=== PATIENT | male | born 1950 | race Hispanic/Latino ===

== ENCOUNTER 2018-08-12 08:27 | Observation (INO) | payer BC, MEDICARE ==
[2018-08-01 13:21] LABS: BASOPHILS # (AUTO) 0.1 (0.0-0.1); EOSINOPHILS # (AUTO) 0.1 (0.0-0.4); EOSINOPHILS % 1.4 % (0.0-6.0); HEMATOCRIT 51.6 % (38.2-49.6); HEMOGLOBIN 16.6 g/dL (14.0-18.0); LYMPHOCYTES # (AUTO) 2.1 (1.0-3.2); LYMPHOCYTES % 34.1 % (18.0-39.1); MEAN CORPUSCULAR HEMOGLOBIN 29.2 pg (28-32); MEAN CORPUSCULAR HGB CONC 32.2 g/dL (31-35); MEAN CORPUSCULAR VOLUME 90.8 fL (81-99); MONOCYTES # (AUTO) 0.5 (0.2-0.8); MONOCYTES % 7.5 % (4.4-11.3); NEUTROPHILS # (AUTO) 3.5 (2.1-6.9); NEUTROPHILS % 55.8 % (38.7-80.0); PLATELET COUNT 195 x10e3/uL (140-360); RED BLOOD COUNT 5.68 x10e6/uL (4.3-5.7); RED CELL DISTRIBUTION WIDTH 14.6 % (11.7-14.4)
[2018-08-01 13:29] LABS: INR 0.92; PROTHROMBIN TIME 12.9 seconds (11.9-14.5)
[2018-08-01 13:30] LABS: PARTIAL THROMBOPLASTIN TIME 40.9 seconds (23.8-35.5)
--- NOTE | 2018-08-01 13:32 | Diagnostic Imaging Report ---
EXAMINATION: PA and lateral views of the chest. COMPARISON: None CLINICAL HISTORY: Preoperative study for urological surgery DISCUSSION: Lines/tubes: None. Lungs: The lungs are well inflated and clear. There is no evidence of pneumonia or pulmonary edema. Pleura: There is no pleural effusion or pneumothorax. Heart and mediastinum: The cardiomediastinal silhouette is normal. Bones and soft tissues: No acute bony abnormalities. Degenerative changes in the thoracic spine IMPRESSION: No acute cardiopulmonary abnormalities. Signed by: Dr. Tadeo Busby M.D. on 08/01/2018 1:29 PM
[2018-08-01 13:36] LABS: ALANINE AMINOTRANSFERASE 43 IU/L (0-55); ALBUMIN 3.7 g/dL (3.5-5.0); ALKALINE PHOSPHATASE 45 IU/L (40-150); ANION GAP 10.2 mmol/L (8-16); BLOOD UREA NITROGEN 12 mg/dL (7-26); BUN/CREATININE RATIO 17 (6-25); CALCIUM 8.6 mg/dL (8.4-10.2); CARBON DIOXIDE 24 mmol/L (22-29); CHLORIDE 105 mmol/L (98-107); CREATININE, SERUM 0.69 mg/dL (0.72-1.25); EST GLOMERULAR FILTRATION RATE > 60 ML/MIN (60-); GLUCOSE 82 mg/dL (74-118); POTASSIUM 4.2 mmol/L (3.5-5.1); SODIUM 135 mmol/L (136-145)
[~2018-08-12] VITALS: Ht 170.2 cm; Wt 73.5 kg
[~2018-08-12 08:27] MED LIST: GLIMEPIRIDE2 MG PO; LISINOPRIL10 MG PO; METFORMIN HCL500 MG PO; SIMVASTATIN40 MG PO; TOPROL XL25 MG PO
--- OUTSIDE RECORDS SUMMARY | 2018-08-12 08:30 | XMS REPORT | Clinical Summary ---
Author Author [facility] Organization [facility] Address Unknown Phone Unavailable Care Team Providers Care Cdl Program Coordinator Name Role Phone Venus Moore MD PCP Unavailable Allergies Comments Active Allergy Reactions Severity Noted Date No Known Drug Allergies 07/31/2015 Medications End Date Status Medication Sig Dispensed Refills Start Date Active lancets (onetouch Use to test 50 each 5 ultrasoft) misc blood glucose 7 once daily Active aspirin (ECOTRIN) 81 MG Take 81 mg by 0 enteric coated tablet mouth daily. Active simvastatin (ZOCOR) 20 MG TAKE 1 TABLET 90 tablet 1 tabletIndications: BY MOUTH AT 8 Hypercholesteremia BEDTIME Active metoprolol succinate XL Take 1 tablet 90 tablet 1 (TOPROL-XL) 50 mg 24 hr (50 mg total) 8 tablet by mouth daily. Active metFORMIN (GLUCOPHAGE) Take 1 tablet 180 tablet 1 500 mg tablet (500 mg 8 total) by mouth 2 (two) times a day. Active VOLTAREN 1 % Apply 100 g 5 gelIndications: Chronic topically 4 8 pain of left knee (four) times a day. Active meloxicam (MOBIC) 15 mg TAKE 1 TABLET 30 tablet 0 tablet BY MOUTH 8 EVERY DAY Active blood sugar diagnostic Use to test 100 strip 1 strips (ONETOUCH ULTRA blood glucose 8 TEST) strip test strips once daily Active lisinopril TAKE 1 TABLET 90 tablet 1 (PRINIVIL,ZESTRIL) 10 mg BY MOUTH 8 tabletIndications: Benign EVERY DAY hypertension Active glimepiride (AMARYL) 4 MG TAKE 1 TABLET 90 tablet 1 tablet BY MOUTH 8 DAILY Active IBU 800 mg tablet Take 800 mg 0 by mouth 8 every 8 (eight) hours as needed. for pain 01/04/2018 Discontinued blood sugar diagnostic Use to test 50 strip 5 strips (The Naked SongUCH ULTRA blood glucose 7 TEST) strip test strips once daily 09/09/2017 Discontinued metFORMIN (GLUCOPHAGE) TAKE 1 TABLET 180 tablet 1 500 mg tablet BY MOUTH 7 TWICE A DAY 09/07/2017 Discontinued simvastatin (ZOCOR) 20 MG Take 1 tablet 90 tablet 1 tabletIndications: (20 mg total) 7 Hypercholesteremia by mouth nightly. 09/09/2017 Discontinued glimepiride (AMARYL) 4 MG TAKE 1 TABLET 90 tablet 1 tablet BY MOUTH 7 EVERY DAY 09/09/2017 Discontinued metoprolol succinate XL TAKE 1 TABLET 90 tablet 1 (TOPROL-XL) 50 mg 24 hr BY MOUTH 7 tablet EVERY DAY 02/26/2018 Discontinued lisinopril TAKE 1 TABLET 90 tablet 1 (PRINIVIL,ZESTRIL) 10 mg BY MOUTH 8 tabletIndications: Benign EVERY DAY hypertension 03/15/2018 Discontinued glimepiride (AMARYL) 4 MG Take 1 tablet 90 tablet 1 tablet (4 mg total) 8 by mouth daily. 12/06/2017 Discontinued meloxicam (MOBIC) 15 mg Take 1 tablet 30 tablet 0 tablet (15 mg total) 8 by mouth daily. 10/21/2017 sodium,potassium,mag Take 2 2 Bottle 0 sulfates 17.5-3.13-1.6 Bottles by 8 gram recon mouth once solnIndications: Colon for 1 dose. cancer screening Active Problems Problem Noted Date Arthritis of knee 07/31/2015 Benign hypertension 07/31/2015 Cellulitis of buttock 07/31/2015 Cellulitis of lower extremity 07/31/2015 Multiple-type hyperlipidemia 07/31/2015 Abnormal prostate specific antigen 07/31/2015 Uncontrolled type 2 diabetes mellitus 07/31/2015 Encounters Care Team Description Date Type Specialty Dakota Lang MA Elevated PSA; Gross hematuria; Urinary frequency 07/08/2018 Orders Only Family Medicine Venus Moore MD 06/17/2018 Telephone Family Medicine Venus Moore MD Elevated PSA (Primary Dx); Gross hematuria; Urinary frequency 06/13/2018 Orders Only Family Medicine Venus Moore MD Gross hematuria (Primary Dx); Uncontrolled type 2 diabetes mellitus with hyperglycemia (HCC); Benign hypertension; Mixed hyperlipidemia 06/10/2018 Office Visit Family Chemo Adam MD 03/15/2018 Refill Family Medicine Chemo Hess MD Benign hypertension 02/26/2018 Refill Family Medicine Adelaide Meyer MA 01/04/2018 Refill Family Medicine Brock Enriquez MD 12/06/2017 Refill Orthopedic Surgery Brock Enriquez MD 11/22/2017 Refill Orthopedic Surgery Sinan Ochoa MD 11/05/2017 Telephone Gastroenterology Chemo Hess MD Khan, Rashid Hasan, MD Colon cancer screening 10/21/2017 Office Visit Gastroenterology Chemo Hess MD Jonna, Venkata Karthik, MD Primary localized osteoarthrosis of left lower leg (Primary Dx); Acute pain of left knee 10/21/2017 Office Visit Orthopedic Surgery Chemo Hess MD Chronic pain of left knee 10/11/2017 Hospital Radiology Encounter Chemo Hess MD 10/11/2017 Telephone Family Medicine Chemo Hess MD Annual physical exam (Primary Dx); Type 2 diabetes mellitus with diabetic polyneuropathy, without long-term current use of insulin; Chronic pain of left knee; Prostate cancer screening; Colon cancer screening 10/07/2017 Office Visit Family Medicine Adelaide Meyer MA 09/09/2017 Refill Family Medicine Chemo Hess MD Hypercholesteremia 09/07/2017 Refill Family Medicine after 08/11/2017 Family History Relation Name Status Comments Father Mother Social History Date Tobacco Use Types Packs/Day Years Used Current Every Day Smoker Cigarettes 0.5 30 Smokeless Tobacco: Never Chew Used Alcohol Use Drinks/Week oz/Week Comments No Sex Assigned at Date Recorded Not on file Industry Job Start Date Occupation Not on file Not on file Not on file Travel End Travel History Travel Start No recent travel history available. Last Filed Vital Signs Time Taken Vital Sign Reading 06/10/2018 8:08 AM [facility] Blood Pressure 138/66 06/10/2018 8:08 AM [facility] Pulse 72 06/10/2018 8:08 AM [facility] Temperature 36.7 C (98.1 F) - Respiratory Rate - 06/10/2018 8:08 AM [facility] Oxygen Saturation 98% - Inhaled Oxygen - Concentration 06/10/2018 8:08 AM [facility] Weight 72.6 kg (160 lb) 06/10/2018 8:08 AM [facility] Height 170.2 cm (5' 7") 06/10/2018 8:08 AM [facility] Body Mass Index 25.06 Plan of Treatment Care Team Description Date Type Specialty Venus Moore MD [id number] [address] [id number] 09/07/2018 Office Visit Family Medicine Health Maintenance Due Date Last Done Comments DIABETIC RETINAL EYE EXAM 1951 DIABETIC FOOT EXAM 1961 COLON CANCER SCREENING 2001 SHINGLES VACCINES (#1) 2001 65+ PNEUMOCOCCAL VACCINE 2016 (1 of 2 - PCV13) PNEUMOCOCCAL 2016 POLYSACCHARIDE VACCINE AGE 65 AND OVER INFLUENZA VACCINE 12/08/2018 URINE MICROALBUMIN 06/10/2019 06/10/2018, 12/28/2016 Procedures Comments Procedure Name Priority Date/Time Associated Diagnosis POC URINALYSIS DIPSTICK Routine 06/10/2018 Gross hematuria 8:46 AM [facility] PSA, FREE Routine 06/10/2018 8:37 AM [facility] COMPREHENSIVE METABOLIC Routine 06/10/2018 Gross hematuria PANEL WITH ADJUSTED 8:37 AM [facility] Uncontrolled type 2 CALCIUM diabetes mellitus with hyperglycemia (HCC) HEMOGLOBIN A1C Routine 06/10/2018 Uncontrolled type 2 8:37 AM [facility] diabetes mellitus with hyperglycemia (HCC) Gross hematuria URINALYSIS, COMPLETE, Routine 06/10/2018 Gross hematuria WITH REFLEX TO CULTURE 8:37 AM [facility] PSA, TOTAL WITH REFLEX TO Routine 06/10/2018 Gross hematuria FREE 8:37 AM [facility] CBC WITH PLATELET AND Routine 06/10/2018 Gross hematuria DIFFERENTIAL 8:37 AM [facility] MICROALBUMIN / CREATININE Routine 06/10/2018 Gross hematuria URINE RATIO 8:37 AM [facility] URINE CULTURE Routine 06/10/2018 8:37 AM [facility] XR KNEE 3 VW LEFT Routine 10/11/2017 Chronic pain of left knee 1:31 PM CDT HEMOGLOBIN A1C Routine 10/07/2017 Type 2 diabetes mellitus 8:41 AM CDT with diabetic polyneuropathy, without long-term current use of insulin COMPREHENSIVE METABOLIC Routine 10/07/2017 Type 2 diabetes mellitus PANEL 8:41 AM CDT with diabetic polyneuropathy, without long-term current use of insulin PROSTATE SPECIFIC ANTIGEN Routine 10/07/2017 Prostate cancer screening 8:41 AM CDT after 08/11/2017 Results * POC urinalysis dipstick (06/10/2018 8:46 AM [facility]) Color urine, POC Yellow Clarity urine, POC Clear Glucose urine, POC Negative Negative Bilirubin urine, POC Negative Negative Ketones urine, POC Negative Negative Specific gravity urine, 1.025 1.005 - 1.030 POC Blood urine, POC Trace (A) Negative pH urine, POC 5.5 5.0, 5.5, 6.0, 6.5, 7.0, 7.5, 8.0, 8.5 Protein urine, POC 3+ (A) Negative Urobilinogen urine, POC <2.0 <2.0 Nitrite urine, POC Negative Negative Leukocyte esterase urine, Negative Negative POC Specimen Urine * PSA, free (06/10/2018 8:37 AM [facility]) PSA, free 1.7 ng/mL [facility] II PSA, free percent 19 (L) >25 % (calc) [facility] Comment[facility] PSA(ng/mL)Free II PSA(%) Estimated(x) Probability of Cancer(as%) 0-2.5 (*) Approx. 1 2.6-4.0(1) 0-27(2) 24(3) 4.1-10(4)0 -10 56 11-15 28 16-20 20 21-25 16 >or=26 8 >10(+) N/A >50 References:(1)Óscar et al.:Urology 60: 469-474 (2001) (2)Óscar et al.:J.Urol 168: 922-925 (2001) Fr ee PSA(%) Sensitivity(%)Specificity( %) < jq=8009 19 < ew=9566 9 (3)Catalona et al.:VICK 277: 1481-5414 (1996) (4)Catalona et al.:VICK 279: 1581-2698 (1997) (x)These estimates vary with age, ethnicity, family history and SHANELL results. (*)The diagnostic usefulness of % Free PSA has not been established in patients with total PSA below 2.6 ng/mL (+)In men with PSA above 10 ng/mL, prostate cancer risk is determined by total PSA alone. The Total PSA value from this assay system is standardized against the equimolar PSA standard. The test result will be approximately 20% higher when compared to the WHO-standardized Total PSA (Siemens assay). Comparison of serial PSA results should be interpreted with this fact in mind. PSA was performed using the [facility] Immunoassay method. Values obtained from different assay methods cannot be used interchangeably. PSA levels, regardless of value, should not be interpreted as absolute evidence of the presence or absence of disease. Narrative Performed At FASTING:YES [facility] FASTING: YES Resulting Agency Comment Performing Organization Information: Site ID: Name: [facility] Address: [address] [place] [phone] Director: Dr. Leif Arriaga Performing Organization Address City/State/Zipcode Phone Number [facility] [address] [address] II * Comprehensive Metabolic Panel with Adjusted Calcium (06/10/2018 8:37 AM [facility]) Glucose 117 (H) 65 - 99 mg/dL [employer] Comment: [place] Fasting reference interval For someone without known diabetes, a glucose value between 100 and 125 mg/dL is consistent with prediabetes and should be confirmed with a follow-up test. BUN, whole blood 12 7 - 25 mg/dL [facility] Creatinine 0.68 (L) 0.70 - 1.25 mg/dL [employer] Comment: [place] For patients >49 years of age, the reference limit for Creatinine is approximately 13% higher for people identified as -[place]. EGFR Non-Afr. [place] 99 > OR=60 mL/min/1.73m2 [employer] [place] EGFR 115 > OR=60 mL/min/1.73m2 [employer] [place] BUN/creatinine ratio 18 6 - 22 (calc) [facility] [place] Sodium 138 135 - 146 mmol/L [facility] [place] Potassium 4.4 3.5 - 5.3 mmol/L [facility] [place] Chloride 104 98 - 110 mmol/L [facility] [place] CO2 25 20 - 32 mmol/L [employer] [place] Calcium 9.2 8.6 - 10.3 mg/dL [facility] [place] Calcium (adjusted for 9.4 8.6 - 10.2 mg/dL (calc) [facility] albumin) [place] Protein 7.1 6.1 - 8.1 g/dL [employer] [place] Albumin, S 4.1 3.6 - 5.1 g/dL [employer] [place] Globulin, total 3.0 1.9 - 3.7 g/dL (calc) [employer] [place] Albumin/globulin ratio 1.4 1.0 - 2.5 (calc) [employer] [place] Total bilirubin 0.5 0.2 - 1.2 mg/dL [employer] [place] Alkaline phosphatase 55 40 - 115 U/L [employer] [place] AST 21 10 - 35 U/L [employer] [place] ALT 31 9 - 46 U/L [employer] [place] Specimen Blood Narrative Performed At FASTING:YES [facility] FASTING: YES Resulting Agency Comment Performing Organization Information: Site ID: [id number] Name: [facility] Address: [address] [place] [phone] Director: Kavya Alston Performing Organization Address City/State/Zipcode Phone Number [facility] [place] [phone] * URINALYSIS, COMPLETE, WITH REFLEX TO CULTURE (06/10/2018 8:37 AM [facility] RELAMPER) Color, UA YELLOW YELLOW [employer] [place] Appearance CLEAR CLEAR [employer] [place] Specific gravity, urine 1.018 1.001 - 1.035 [employer] [place] pH, urine 5.5 5.0 - 8.0 [employer] [place] Glucose, urine NEGATIVE NEGATIVE [facility] [place] Bilirubin, UA NEGATIVE NEGATIVE [employer] [place] Ketones, UA NEGATIVE NEGATIVE [employer] [place] Occult blood, urine NEGATIVE NEGATIVE [facility] [place] Protein, UA NEGATIVE NEGATIVE [facility] [place] Nitrite, UA NEGATIVE NEGATIVE [facility] [facility] [place] Leukocyte esterase, UA TRACE (A) NEGATIVE [facility] [place] WBC, UA 0-5 < OR=5 /HPF [facility] [place] RBC, UA NONE SEEN < OR=2 /HPF [facility] [place] Squamous epithelial NONE SEEN < OR=5 /HPF [facility] cells, UA [place] Bacteria, UA NONE SEEN NONE SEEN /HPF [facility] [place] Hyaline casts, UA NONE SEEN NONE SEEN /LPF [facility] [place] Reflex CULTURE INDICATED - RESULTS TO [facility] FOLLOW [place] Narrative Performed At FASTING:YES [facility] FASTING: YES Resulting Agency Comment Performing Organization Information: Site ID: [id number] Name: [facility] Address: [address] [place] [phone] Director: Kavya Alston Performing Organization Address City/State/[facility]code Phone Number [facility] [place] [address] [place] [address] * PSA, total with reflex to free (06/10/2018 8:37 AM [facility]AMPER) PSA 8.8 (H) < OR=4.0 ng/mL [facility] II Specimen Blood Narrative Performed At FASTING:YES [facility] FASTING: YES Resulting Agency Comment Performing Organization Information: Site ID: [id number] Name: [facility] Address: [address] [place] [phone] Director: Dr. Leif Arriaga Performing Organization Address City/[facility]/Zipcode Phone Number [facility] [place] [address] II * Microalbumin / creatinine urine ratio (06/10/2018 8:37 AM [facility] RELAMPER) Creatinine, urine, random 114 20 - 320 mg/dL [employer] [place] Microalbumin, urine 3.5 See Note: mg/dL [facility] Comment: [place] Reference Range: Reference Range Not established Microalbumin/creatinine 31 (H) <30 mcg/mg creat [facility] ratio Comment: [place] The ADA defines abnormalities in albumin excretion as follows: Category Result (mcg/mg creatinine) Normal <30 Microalbuminuria 30-299 Clinical albuminuria > JV=411 The ADA recommends that at least two of three specimens collected within a 3-6 month period be abnormal before considering a patient to be within a diagnostic category. Specimen Urine Narrative Performed At FASTING:YES [facility] FASTING: YES Resulting Agency Comment Performing Organization Information: Site ID: [id number] Name: [facility] Address: [address] [place] [phone] Director: Kavya Alston Performing Organization Address City/State/Zipcode Phone Number [facility] [employer] [place] [address] [place] [phone] * CBC with platelet and differential (06/10/2018 8:37 AM [facility]AMPER) WBC 6.6 3.8 - 10.8 Thousand/uL [employer] [place] RBC 5.81 (H) 4.20 - 5.80 Million/uL [employer] [place] HGB 17.1 13.2 - 17.1 g/dL [employer] [place] HCT 51.0 (H) 38.5 - 50.0 % [employer] [place] MCV 87.8 80.0 - 100.0 fL [employer] [place] MCH 29.4 27.0 - 33.0 pg [employer] [place] MCHC 33.5 32.0 - 36.0 g/dL [employer] [place] RDW 13.2 11.0 - 15.0 % [employer] [place] Platelet count 220 140 - 400 Thousand/uL [facility] [place] MPV 10.2 7.5 - 12.5 fL [employer] [place] Neutrophils, absolute 3,359 1,500 - 7,800 cells/uL [employer] [place] Lymphocytes, absolute 2,548 850 - 3,900 cells/uL [facility] [place] Monocytes, absolute 462 200 - 950 cells/uL [facility] [place] Eosinophils, absolute 132 15 - 500 cells/uL [facility] [place] Basophils, absolute 99 0 - 200 cells/uL [facility] [place] Neutrophils 50.9 % [employer] [place] Lymphocytes 38.6 % [employer] [place] Monocytes 7.0 % [employer] [place] Eosinophils 2.0 % [employer] [place] Basophils + RC 1.5 % [employer] [place] Specimen Blood Narrative Performed At FASTING:YES [facility] FASTING: YES Resulting Agency Comment Performing Organization Information: Site ID: [id number] Name: [facility] Address: [address] [place] [phone] Director: Kavya Alston Performing Organization Address City/[facility]/Zipcode Phone Number [place] [employer] [place] [address] [place] [phone] * Urine culture (06/10/2018 8:37 AM [facility] RELAMPER) Urine culture SEE NOTE (A) [employer] Comment: [place] CULTURE, URINE, ROUTINE MICRO NUMBER:[id number] TEST STATUS: FINAL SPECIMEN SOURCE: URINE SPECIMEN QUALITY:ADEQUATE RESULT: 10,000-50,000 CFU/mL of Enterococcus species COMMENT: Additional organism(s) less than 10,000 CFU/mL isolated. These organisms, commonly found on external and internal genitalia, are considered colonizers. No further testing performed. Enteroco ccus sp. -------- -------- INT MONIKA AMPICILLIN S <=2 CIPROFLOXACIN S <=0.5 LEVOFLOXACIN S 1 NITROFURANTOIN S <=16 TETRACYCLINE S <=1 VANCOMYCIN S 1 S=SusceptibleI=Intermediat eR=Resistant*=Not Tested NR=Not ReportedNN=See Therapy Comments Narrative Performed At FASTING:YES [facility] FASTING: YES Resulting Agency Comment Performing Organization Information: Site ID: [id number] Name: [facility] Address: [address] [place] [phone] Director: Kavya Alston Performing Organization Address [facility] Phone Number [place] [address] * Hemoglobin A1c (06/10/2018 8:37 AM [facility]TURE RELAMPER) Only the most recent of 2 results within the time period is included. Hemoglobin A1C 6.1 (H) <5.7 % of total Hgb [employer] Comment: [place] For someone without known diabetes, a hemoglobin A1c value between 5.7% and 6.4% is consistent with prediabetes and should be confirmed with a follow-up test. For someone with known diabetes, a value <7% indicates that their diabetes is well controlled. A1c targets should be individualized based on duration of diabetes, age, comorbid conditions, and other considerations. This assay result is consistent with an increased risk of diabetes. Currently, no consensus exists regarding use of hemoglobin A1c for diagnosis of diabetes for children. Specimen Blood Narrative Performed At FASTING:YES [facility] FASTING: YES Resulting Agency Comment Performing Organization Information: Site ID: [id number] Name: [facility] Address: [address] [place] [phone] Director: Kavya Alston Performing Organization Address [facility]/Zipcode Phone Number [facility] [place] [address] [place], [place] [phone] * XR Knee 3 Vw Left (10/11/2017 1:31 PM CDT) Narrative Performed At EXAMINATION:XR KNEE 3 VW LEFT RADIANT CLINICAL HISTORY:M25.562 Pain in left knee, G89.29 Other chronic pain, Chronic left knee pain COMPARISON:None. IMPRESSION: There is moderate nonweightbearing degenerative narrowing of the medial femoral tibial compartment. There are no erosions and no soft tissue calcifications. The patellar femoral distance is narrowed. There is a small suprapatellar joint effusion. Osteophytes are present on the posterior distal femoral joint margin and also the anterior tibial joint margin. No signs of acute trauma. [id number] Procedure Note Hm Interface, Radiology Results Incoming - 10/11/2017 3:07 PM CDT EXAMINATION: XR KNEE 3 VW LEFT CLINICAL HISTORY: M25.562 Pain in left knee, G89.29 Other chronic pain, Chronic left knee pain COMPARISON: None. IMPRESSION: There is moderate nonweightbearing degenerative narrowing of the medial femoral tibial compartment. There are no erosions and no soft tissue calcifications. The patellar femoral distance is narrowed. There is a small suprapatellar joint effusion. Osteophytes are present on the posterior distal femoral joint margin and also the anterior tibial joint margin. No signs of acute trauma. [facility] [id number] Performing Organization Address [facility]/Zipcode Phone Number [facility] [address] [place] [address] * Prostate specific antigen (10/07/2017 8:41 AM CDT) PSA 5.1 (H) < OR=4.0 ng/mL [employer] Comment: [place] The total PSA value from this assay system is standardized against the WHO standard. The test result will be approximately 20% lower when compared to the equimolar-standardized total PSA ([facility]). Comparison of serial PSA results should be interpreted with this fact in mind. This test was performed using the Siemens chemiluminescent method. Values obtained from different assay methods cannot be used interchangeably. PSA levels, regardless of value, should not be interpreted as absolute evidence of the presence or absence of disease. Specimen Blood Narrative Performed At FASTING:YES [facility] FASTING: YES Resulting Agency Comment Performing Organization Information: Site ID: [id number] Name: [facility] Address: [address] [place] [address] Director: Kavya Alston Performing Organization Address City/State/Zipcode Phone Number [place] [employer] [place] [address] [place] [address] * Comprehensive metabolic panel (10/07/2017 8:41 AM CDT) Glucose 123 (H) 65 - 99 mg/dL [employer] Comment: [place] Fasting reference interval For someone without known diabetes, a glucose value between 100 and 125 mg/dL is consistent with prediabetes and should be confirmed with a follow-up test. BUN, whole blood 16 7 - 25 mg/dL [employer] [place] Creatinine 0.78 0.70 - 1.25 mg/dL [employer] Comment: [place] For patients >49 years of age, the reference limit for Creatinine is approximately 13% higher for people identified as -[place]. EGFR Non-Afr. [place] 94 > OR=60 mL/min/1.73m2 [facility] EGFR 109 > OR=60 mL/min/1.73m2 [employer] [place] BUN/creatinine ratio NOT APPLICABLE 6 - 22 (calc) [employer] [place] Sodium 141 135 - 146 mmol/L [employer] [place] Potassium 4.4 3.5 - 5.3 mmol/L [employer] [place] Chloride 104 98 - 110 mmol/L [employer] [place] CO2 29 20 - 31 mmol/L [employer] [place] Calcium 9.2 8.6 - 10.3 mg/dL [employer] [place] Protein 6.9 6.1 - 8.1 g/dL [employer] [place] Albumin, S 4.3 3.6 - 5.1 g/dL [employer] [place] Globulin, total 2.6 1.9 - 3.7 g/dL (calc) [employer] [place] Albumin/globulin ratio 1.7 1.0 - 2.5 (calc) [employer] [place] Total bilirubin 0.6 0.2 - 1.2 mg/dL [employer] [place] Alkaline phosphatase 54 40 - 115 U/L [employer] [place] AST 21 10 - 35 U/L [employer] [place] ALT 26 9 - 46 U/L [employer] [place] Specimen Blood Narrative Performed At FASTING:YES [facility] FASTING: YES Resulting Agency Comment Performing Organization Information: Site ID: [id number] Name: [facility] Address: [address] [place] [address] Director: Kavya Alston Performing Organization Address City/State/Zipcode Phone Number [facility] [employer] [place] [address] [place] [phone] after 08/11/2017 Insurance Payer Benefit Subscriber ID Type Phone Address Plan / Group BCBS BCBS xxxxxxxxxxxx PPO CHOICE PPO/ADELIA MORA PPO Advance Directives Patient has advance care planning documents on file. For more information, [place] contact: Raul Flynn [address] [place] [address]
--- OUTSIDE RECORDS SUMMARY | 2018-08-12 08:30 | XMS REPORT ---
Author Author [facility] Address Unknown Phone Unavailable Care Team Providers Care Costume Draper Name Role Phone NICO DOUGLAS Unavailable Unavailable Problems This patient has no known problems. Allergies, Adverse Reactions, Alerts This patient has no known allergies or adverse reactions. Medications This patient has no known medications. Results Test Description Test Time Test Comments Text Results Atomic Results Result Comments CHEST 2 VIEWS 2018-08-01 13:27:00 [place] [id number] Patient Name: BRITNI VALDERRAMA MR #: [id number] : 1950 Age/Sex: 68/M Req #: [id number] Adm Physician: Ordered by: NICO DOUGLAS MD Report #: [id number] Location: OR Room/Bed: Procedure: [id number] DX/CHEST 2 VIEWS Exam Date: 08/01/18 Exam Time: 1304 REPORT STATUS: Signed EXAMINATION: PA and lateral views of the chest. COMPAR VINCENT: None CLINICAL HISTORY: Preoperative study for urological surgery DISCUSSION: Lines/tubes: None. Lungs: The lungs are well inflated and clear. There is no evidence of pneumonia or pulmonary edema. Pleura: There is no pleural effusion or pneumothorax. Heart and mediastinum: The cardiomediastinal silhouette is normal. Bones and soft tissues: No acute bony abnormalities. Degenerative changes in the thoracic spine IMPRESSION: No acute cardiopulmonary abnormalities. Signed by: Dr. Harley Coombs M.D. on 08/01/2018 1:29 PM Dictated By: HARLEY COOMBS MD 132 Transcribed By: JAYDEN on 08/01/18 1329 COPY TO: NICO DOUGLAS MD
[2018-08-12] MEDS ORDERED: CEFOXITIN SOD 1 GM VIAL ONE (09:09)
[2018-08-12] MEDS ORDERED: FENTANYL CITRATE/PF 100MCG/2 ML INJ ONE ×2 (11:34→13:42)
--- OUTSIDE RECORDS SUMMARY | 2018-08-12 12:19 | XMS REPORT | Clinical Summary ---
Author Author [facility] Address Unknown Phone Unavailable Care Team Providers Care Senior Field Service Engineer Name Role Phone Venus Moore MD PCP [...] Use to test 50 strip 5 strips (MightyNestUCH ULTRA blood glucose 7 TEST) strip test [...] Brock Enriquez MD 12/06/2017 Refill Orthopedic Surgery Brokc Enriquez MD 11/22/2017 Refill Orthopedic Surgery Sinan [...] Taken Vital Sign Reading 06/10/2018 8:08 AM WIRE CHIEF Blood Pressure 138/66 06/10/2018 8:08 AM WIRE CHIEF Pulse 72 06/10/2018 8:08 AM WIRE CHIEF Temperature 36.7 C (98.1 F) - Respiratory Rate - 06/10/2018 8:08 AM WIRE CHIEF Oxygen Saturation 98% - Inhaled Oxygen - Concentration 06/10/2018 8:08 AM WIRE CHIEF Weight 72.6 kg (160 lb) 06/10/2018 8:08 AM WIRE CHIEF Height 170.2 cm (5' 7") 06/10/2018 8:08 AM WIRE CHIEF Body Mass Index 25.06 Plan of Treatment Care Team Description Date Type Specialty Venus Moore MD [id number] [id number] 09/07/2018 Office Visit Family Medicine Health Maintenance [...] DIPSTICK Routine 06/10/2018 Gross hematuria 8:46 AM WIRE CHIEF PSA, FREE Routine 06/10/2018 8:37 AM WIRE CHIEF COMPREHENSIVE METABOLIC Routine 06/10/2018 Gross hematuria PANEL WITH ADJUSTED 8:37 AM WIRE CHIEF Uncontrolled type 2 CALCIUM diabetes mellitus with hyperglycemia (HCC) HEMOGLOBIN A1C Routine 06/10/2018 Uncontrolled type 2 8:37 AM WIRE CHIEF diabetes mellitus with hyperglycemia (HCC) Gross hematuria URINALYSIS, COMPLETE, Routine 06/10/2018 Gross hematuria WITH REFLEX TO CULTURE 8:37 AM WIRE CHIEF PSA, TOTAL WITH REFLEX TO Routine 06/10/2018 Gross hematuria FREE 8:37 AM WIRE CHIEF CBC WITH PLATELET AND Routine 06/10/2018 Gross hematuria DIFFERENTIAL 8:37 AM WIRE CHIEF MICROALBUMIN / CREATININE Routine 06/10/2018 Gross hematuria URINE RATIO 8:37 AM WIRE CHIEF URINE CULTURE Routine 06/10/2018 8:37 AM WIRE CHIEF XR KNEE 3 VW LEFT Routine 10/11/2017 [...] * POC urinalysis dipstick (06/10/2018 8:46 AM WIRE CHIEF) Color urine, POC Yellow Clarity urine, POC [...] Urine * PSA, free (06/10/2018 8:37 AM WIRE CHIEF) PSA, free 1.7 ng/mL [facility] II [...] (2001) Fr ee PSA(%) Sensitivity(%)Specificity( %) < be=2775 19 < yf=4143 9 (3)Catalona et al.:VICK 277: 5200-4562 (1996) (4)Catalona et al.:VICK 279: 0032-6868 (1997) (x)These estimates vary with age, ethnicity, [...] mind. PSA was performed using the Mary Celestine Immunoassay method. Values obtained from different assay methods cannot be used interchangeably. PSA levels, regardless of value, should not be interpreted as absolute evidence of the presence or absence of disease. Narrative Performed At FASTING:YES [facility] FASTING: YES Resulting Agency Comment Performing Organization Information: Site ID: Name: [facility] Address: [address] [place] [address] Director: Dr. Leif Arriaga Performing Organization Address City/State/Zipcode Phone Number [facility] [address] [facility] [place] [address] II * Comprehensive Metabolic Panel with Adjusted Calcium (06/10/2018 8:37 AM WIRE CHIEF) Glucose 117 (H) 65 - 99 mg/dL [facility] Comment: [place] Fasting reference interval For someone without known diabetes, a glucose value between 100 and 125 mg/dL is consistent with prediabetes and should be confirmed with a follow-up test. BUN, whole blood 12 7 - 25 mg/dL [facility] Creatinine 0.68 (L) 0.70 - 1.25 mg/dL [facility] Comment: [place] For patients >49 years of age, the reference limit for Creatinine is approximately 13% higher for people identified as -Gibraltarian. EGFR Non-Afr. Gibraltarian 99 > OR=60 mL/min/1.73m2 [facility] [place] EGFR 115 > OR=60 mL/min/1.73m2 [facility] [place] BUN/creatinine ratio 18 6 - 22 (calc) [facility] [place] Sodium 138 135 - 146 mmol/L [facility] [place] Potassium 4.4 3.5 - 5.3 mmol/L [facility] [place] Chloride 104 98 - 110 mmol/L [facility] [place] CO2 25 20 - 32 mmol/L [facility] [place] Calcium 9.2 8.6 - 10.3 mg/dL [facility] [place] Calcium (adjusted for 9.4 8.6 - 10.2 mg/dL (calc) [facility] albumin) [place] Protein 7.1 6.1 - 8.1 g/dL [facility] [place] Albumin, S 4.1 3.6 - 5.1 g/dL [facility] [place] Globulin, total 3.0 1.9 - 3.7 g/dL (calc) [facility] [place] Albumin/globulin ratio 1.4 1.0 - 2.5 (calc) [facility] [place] Total bilirubin 0.5 0.2 - 1.2 mg/dL [facility] [place] Alkaline phosphatase 55 40 - 115 U/L [facility] [place] AST 21 10 - 35 U/L [facility] [place] ALT 31 9 - 46 U/L [facility] [place] Specimen Blood Narrative Performed At FASTING:YES [facility] FASTING: YES Resulting Agency Comment Performing Organization Information: Site ID: [id number] Name: [facility] Address: [address] [place] [phone] Director: Kavya Alston Performing Organization Address City/State/Zipcode Phone Number [employer] [facility] [place] [phone] * URINALYSIS, COMPLETE, WITH REFLEX TO CULTURE (06/10/2018 8:37 AM WIRE CHIEF) Color, UA YELLOW YELLOW [facility] [place] Appearance CLEAR CLEAR [facility] [place] Specific gravity, urine 1.018 1.001 - 1.035 [facility] [place] pH, urine 5.5 5.0 - 8.0 [facility] [place] Glucose, urine NEGATIVE NEGATIVE [facility] [place] Bilirubin, UA NEGATIVE NEGATIVE [facility] [place] Ketones, UA NEGATIVE NEGATIVE [facility] [place] Occult blood, urine NEGATIVE NEGATIVE [facility] [place] Protein, UA NEGATIVE NEGATIVE [facility] [place] Nitrite, UA NEGATIVE NEGATIVE [facility] [place] Leukocyte esterase, UA TRACE (A) NEGATIVE [facility] [place] WBC, UA 0-5 < OR=5 /HPF [facility] [place] RBC, UA NONE SEEN < OR=2 /HPF [facility] [place] Squamous epithelial NONE SEEN < OR=5 /HPF [facility] cells, UA [place] Bacteria, UA NONE SEEN NONE SEEN /HPF [facility] [place] Hyaline casts, UA NONE SEEN NONE SEEN /LPF [facility] [place] Reflex CULTURE INDICATED - RESULTS TO [facility] [place] Narrative Performed At FASTING:YES [facility] FASTING: YES Resulting Agency Comment Performing Organization Information: Site ID: [id number] Name: [facility] Address: [address] [place] [phone] Director: Kavya Alston Performing Organization Address City/State/[facility] Cent[facility] Phone Number [employer] [place] [address] [place] [phone] * PSA, total with reflex to free (06/10/2018 8:37 AM WIRE CHIEF) PSA 8.8 (H) < OR=4.0 ng/mL [facility] [place] Specimen Blood Narrative Performed At FASTING:YES [facility] FASTING: YES Resulting Agency Comment Performing Organization Information: Site ID: [id number] Name: [facility] Address: [address] [place] [phone] Director: Dr. Leif Arriaga Performing Organization Address City/[facility]/Zipcode Phone Number [employer] [place] [address] II * Microalbumin / creatinine urine ratio (06/10/2018 8:37 AM WIRE CHIEF) Creatinine, urine, random 114 20 - 320 mg/dL [facility] [place] Microalbumin, urine 3.5 See Note: mg/dL [facility] Comment: [place] Reference Range: Reference Range Not established Microalbumin/creatinine 31 (H) <30 mcg/mg creat [facility] ratio Comment: [place] The ADA defines abnormalities in albumin excretion as follows: Category Result (mcg/mg creatinine) Normal <30 Microalbuminuria 30-299 Clinical albuminuria > BZ=310 The ADA recommends that at least two of three specimens collected within a 3-6 month period be abnormal before considering a patient to be within a diagnostic category. Specimen Urine Narrative Performed At FASTING:YES [facility] FASTING: YES Resulting Agency Comment Performing Organization Information: Site ID: [id number] Name: [facility] Address: [address] [place] [phone] Director: Kavya Alston Performing Organization Address City/State/Zipcode Phone Number [facility] [place] [address] [place] [phone] * CBC with platelet and differential (06/10/2018 8:37 AM WIRE CHIEF) WBC 6.6 3.8 - 10.8 Thousand/uL [facility] [place] RBC 5.81 (H) 4.20 - 5.80 Million/uL [facility] [place] HGB 17.1 13.2 - 17.1 g/dL [facility] [place] HCT 51.0 (H) 38.5 - 50.0 % [facility] [place] MCV 87.8 80.0 - 100.0 fL [facility] [place] MCH 29.4 27.0 - 33.0 pg [facility] [place] MCHC 33.5 32.0 - 36.0 g/dL [facility] [place] RDW 13.2 11.0 - 15.0 % [facility] [place] Platelet count 220 140 - 400 Thousand/uL [facility] [place] MPV 10.2 7.5 - 12.5 fL [facility] [place] Neutrophils, absolute 3,359 1,500 - 7,800 cells/uL [facility] [place] Lymphocytes, absolute 2,548 850 - 3,900 cells/uL [facility] [place] Monocytes, absolute 462 200 - 950 cells/uL [facility] [place] Eosinophils, absolute 132 15 - 500 cells/uL [facility] [place] Basophils, absolute 99 0 - 200 cells/uL [facility] [place] Neutrophils 50.9 % [facility] [place] Lymphocytes 38.6 % [facility] [place] Monocytes 7.0 % [facility] [place] Eosinophils 2.0 % [facility] [place] Basophils + RC 1.5 % [facility] [place] Specimen Blood Narrative Performed At FASTING:YES [facility] FASTING: YES Resulting Agency Comment Performing Organization Information: Site ID: [id number] Name: [facility] Address: [address] [place] [phone] Director: Kavya Alston Performing Organization Address City/[facility]/Zipcode Phone Number [facility] [employer] [place] [address] [place] [phone] * Urine culture (06/10/2018 8:37 AM WIRE CHIEF) Urine culture SEE NOTE (A) [facility] Comment: [facility] CULTURE, URINE, ROUTINE MICRO NUMBER:[id number] TEST STATUS: FINAL SPECIMEN SOURCE: URINE SPECIMEN [...] ReportedNN=See Therapy Comments Narrative Performed At FASTING:YES [facility] FASTING: YES Resulting Agency Comment Performing Organization Information: Site ID: [id number] Name: [facility] Address: [address] [place] [phone] Director: Kavya Alston Performing Organization Address [facility] Phone Number [place] [address] * Hemoglobin A1c (06/10/2018 8:37 AM WIRE CHIEF) Only the most recent of 2 results within the time period is included. Hemoglobin A1C 6.1 (H) <5.7 % of total Hgb [facility] Comment: [place] For someone without known diabetes, a hemoglobin [...] Performing Organization Information: Site ID: [id number] Name: [facility] Address: [address] [place] [phone] Director: Kavya Alston Performing Organization Address [facility]/Zipcode Phone Number [employer] [place] [address] [place], [place] [phone] * XR Knee 3 Vw Left (10/11/2017 [...] joint margin. No signs of acute trauma. [id number] Procedure Note Hm Interface, Radiology Results Incoming [...] joint margin. No signs of acute trauma. [id number] Performing Organization Address [facility]/Zipcode Phone Number [facility] [address] [place] [address] * Prostate specific antigen (10/07/2017 8:41 AM CDT) PSA 5.1 (H) < OR=4.0 ng/mL [facility] Comment: [place] The total PSA value from this assay system is standardized against the WHO standard. The test result will be approximately 20% lower when compared to the equimolar-standardized total PSA (Mary Celestine). Comparison of serial PSA results should be [...] Performing Organization Information: Site ID: [id number] Name: [facility] Address: [address] [place] [address] Director: Kavya Alston Performing Organization Address City/State/Zipcode Phone Number [facility] [place] [address] [place] [address] * Comprehensive metabolic panel (10/07/2017 8:41 AM CDT) Glucose 123 (H) 65 - 99 mg/dL [facility] Comment: [place] Fasting reference interval For someone without known diabetes, a glucose value between 100 and 125 mg/dL is consistent with prediabetes and should be confirmed with a follow-up test. BUN, whole blood 16 7 - 25 mg/dL [facility] [place] Creatinine 0.78 0.70 - 1.25 mg/dL [facility] Comment: [place] For patients >49 years of age, the reference limit for Creatinine is approximately 13% higher for people identified as -Gibraltarian. EGFR Non-Afr. Gibraltarian 94 > OR=60 mL/min/1.73m2 [facility] EGFR 109 > OR=60 mL/min/1.73m2 [facility] [place] BUN/creatinine ratio NOT APPLICABLE 6 - 22 (calc) [facility] [place] Sodium 141 135 - 146 mmol/L [facility] [place] Potassium 4.4 3.5 - 5.3 mmol/L [facility] [place] Chloride 104 98 - 110 mmol/L [facility] [place] CO2 29 20 - 31 mmol/L [facility] [place] Calcium 9.2 8.6 - 10.3 mg/dL [facility] [place] Protein 6.9 6.1 - 8.1 g/dL [facility] [place] Albumin, S 4.3 3.6 - 5.1 g/dL [facility] [place] Globulin, total 2.6 1.9 - 3.7 g/dL (calc) [facility] [place] Albumin/globulin ratio 1.7 1.0 - 2.5 (calc) [facility] [place] Total bilirubin 0.6 0.2 - 1.2 mg/dL [facility] [place] Alkaline phosphatase 54 40 - 115 U/L [facility] [place] AST 21 10 - 35 U/L [facility] [place] ALT 26 9 - 46 U/L [facility] [place] Specimen Blood Narrative Performed At FASTING:YES [facility] FASTING: YES Resulting Agency Comment Performing Organization Information: Site ID: [id number] Name: [facility] Address: [address] [place] [address] Director: Kavya Alston Performing Organization Address City/State/Zipcode Phone Number [facility] [place] [address] [place] [phone] after 08/11/2017 Insurance Payer Benefit Subscriber ID Type Phone Address Plan / Group BCBS BCBS xxxxxxxxxxxx PPO CHOICE PPO/ADELIA MORA PPO Advance Directives Patient has advance care planning documents on file. For more information, [place] h[place] contact: Raul Flynn [address] [place] [address]
--- NOTE | 2018-08-12 12:23 | Diagnostic Imaging Report ---
TECHNIQUE: Transrectal ultrasound of the prostate. Prostate biopsy ^[id number] ^[id number] FINDINGS: Sonographic guidance was provided to Dr. Guzman Rubio for the purposes of a biopsy. The seminal vesicles are present and unremarkable. The gland size measures 3.3 x 4.2 x 5.6 cm. Prostate volume is 40.3 cc. The peripheral zone is homogeneous without focal nodules. The transition zone demonstrates diffuse glandular stromal hyperplasia consistent with BPH. IMPRESSION: As above. Signed by: Dr. Nella Patrick MD on 08/12/2018 12:20 PM
--- NOTE | 2018-08-12 13:24 | NUR ---
RECEIVED REPORT FROM YUN FROM PACU. AWAITING FOR PT TO ARRIVE TO FLOOR
[2018-08-12] MEDS ORDERED: MORPHINE SULFATE INJ 4 MG/ML INJ 1ML ONE (13:31)
--- NOTE | 2018-08-12 13:40 | NUR ---
RECEIVED PT TO FLOOR [id number]. PT REPORT PAIN TO PENILE, 10/10 BURNING. PT JUST RECEIVED MORPHINE IN PACU. WILL WAIT FOR TIME DUE PT HAS A MAYA CATH DRAINING BRIGHT RED URINE. NO CLOTS NOTED IN BAG OR TUBING. WILL CONTINUE TO MONITOR PT AT THIS TIME , SIDE RAILSX2, BED WHEELS LOCKED ,CALL LIGHT IS WITHIN EASY REACH, INSTRUCTED TO CALL FOR ASSISTANCE IF NEEDED
[2018-08-12] MEDS ORDERED: MIDAZOLAM HCL 2 MG/2 ML VIAL ONE (13:42)
[2018-08-12 13:45] VITALS: BP 155/68
[2018-08-12 14:02] VITALS: BP 155/68
[2018-08-12] MEDS ORDERED: DEXTROSE 50% SYRINGE 50 ML IV PRN (15:00)
[2018-08-12] MEDS ORDERED: MORPHINE SULFATE INJ 4 MG/ML INJ 1ML IV PRN (15:15)
[2018-08-12] MEDS ORDERED: ZOLPIDEM TARTRATE 5 MG TAB PO PRN (15:30)
[2018-08-12] MEDS ORDERED: ONDANSETRON HCL INJ 2MG/ML 2ML 2 MG/ML VIAL IV PRN (15:30)
[2018-08-12] MEDS ORDERED: ACETAMINOPHEN 325 MG TAB PO PRN (15:30)
[2018-08-12] MEDS ORDERED: HYDRALAZINE HCL 20 MG/ML VIAL IV PRN (15:30)
[2018-08-12 15:53] VITALS: BP 151/70
[2018-08-12] MEDS: CEFOXITIN 1GM/ D5W 50ML 50 ML IV SCH (16:54)
[2018-08-12] MEDS: LISINOPRIL 10 MG TAB PO SCH (16:54)
[2018-08-12] MEDS: DOCUSATE SODIUM 100 MG CAP PO SCH (16:55)
[2018-08-12] MEDS: PHENAZOPYRIDINE HCL 100 MG TAB PO SCH (16:55)
[2018-08-12] MEDS: METOPROLOL SUCCINATE 50 MG TAB XL PO SCH (16:55)
--- NOTE | 2018-08-12 18:06 | Operative Report ---
DATE OF PROCEDURE: 08/12/2018 SURGEON: Guzman Rubio MD PREOPERATIVE DIAGNOSES: Microscopic hematuria and elevated prostate-specific antigen. POSTOPERATIVE DIAGNOSES: Microscopic hematuria and elevated prostate-specific antigen. OPERATION PERFORMED: Cystoscopy and ultrasound-directed transrectal prostate biopsy. ANESTHESIA: General. INDICATIONS: This patient is a 68-year-old gentleman, who had a prostate-specific antigen of 8.8. He was also found to have microscopic hematuria. The patient had a CT scan that revealed a 3 cm cystic mass in the right kidney and ultrasound was advised. Bilateral renal ultrasound revealed a septated right renal cyst, but no evidence of malignancy. The patient is here for a cystoscopy and ultrasound-directed transrectal prostate biopsy. For further details, please refer to the history and physical. Procedure was done in the following fashion. PROCEDURE IN DETAIL: The patient was taken to the operating room and placed under general anesthesia and dressed and draped with Hibiclens in lithotomy position in the usual fashion. The 22-Danish Olympus cystoscope was inserted under direct vision with the 30-degree oblique lens and video camera attachment. No urethral strictures were encountered. The sphincter and verumontanum were intact. The prostate was estimated about 30 g. There was some mild bladder trabeculation. Clear efflux was seen from both ureteral orifices. No bladder tumors or bladder stones were identified. My next step was to empty the bladder and withdraw the cystoscope. An ultrasound scan of the prostate was then performed. This revealed about a 30 g prostate. The seminal vesicles appeared normal. There were some internal calcifications present. Sextant biopsies of the prostate were performed using the Bard spring-loaded biopsy gun through the ultrasound probe. Specimens were taken from the right base lateral, then right base medial, then right mid lateral, then right mid medial, then right apex lateral, then right apex medial, the left base lateral, the left base medial, the left mid lateral, the left mid medial, the left apex lateral, the left apex medial. Once this was accomplished, the ultrasound probe was removed. A 20-Danish Montano catheter was inserted. The patient tolerated the procedure well and left the operating room in good condition. Guzman Rubio MD DIVINA/MODL /[id number]
[2018-08-12] MEDS ORDERED: LIDOCAINE HCL 2% LOCAL INJ 5 ML SDV VIAL INJ ONE (18:41)
[2018-08-12] MEDS ORDERED: SEVOFLURANE INHAL SOLN 250 ML PEN BTL ONE (18:41)
[2018-08-12] MEDS ORDERED: ONDANSETRON HCL INJ 2MG/ML 2ML 2 MG/ML VIAL ONE (18:41)
[2018-08-12] MEDS ORDERED: PROPOFOL IV EMULSION 10 MG/ML 20 ML VIAL ONE (18:41)
[2018-08-12 20:00] VITALS: BP 124/67
[2018-08-12 21:00] VITALS: BP 124/67
[2018-08-12] MEDS ORDERED: SIMVASTATIN 20 MG TAB PO SCH (21:00)
[2018-08-12] MEDS ORDERED: SIMVASTATIN 40 MG TAB PO SCH (21:00)
--- NOTE | 2018-08-12 22:08 | NUR ---
simple irrigation performed. no clots. urine orange /red.
[2018-08-12] MEDS: HYDROCODONE/APAP 5MG-325MG TAB PO PRN (22:27)
--- NOTE | 2018-08-12 22:48 | Consultation ---
DATE OF CONSULTATION: 08/12/2018 Internal Medicine Consultation Note. REASON FOR CONSULTATION: Medical management. HISTORY OF PRESENT ILLNESS: This is a 68-year-old male with known history of hypertension and type 2 diabetes, who has had an elevated PSA at the urologist's office at 8.8 and came in to have a prostate biopsy that was performed today by Urology, Dr. Rubio. Post procedure, the patient was doing well with no complaints. He currently has a Montano that is kind of blood-tinged. The patient reports he has been having diabetes for significant number of years though he does not feel like he actually truly has it as he reported to the . He does have a history of BPH as well. He is still hypertensive and does take antihypertensive medications. The patient is seen and evaluated at bedside on the medical floor. He is currently doing well with no other issues at this time. REVIEW OF SYSTEMS: Pertinent positive elevated PSA with recent UTI, now currently with prostate biopsy. Pertinent negative: Denies any chest pain, palpitation, nausea, vomiting, diarrhea, dysuria, hematuria, frequency, urgency, lightheadedness, dizziness, abdominal pain, headaches, shortness of breath, cough, congestion, fever, or any other complaints. The rest of the 14-point review of systems have been reviewed with the patient and are negative. ALLERGIES: NO KNOWN DRUG ALLERGIES. MEDICATIONS: Metformin 500 mg one tab daily, metoprolol succinate 50 mg Amaryl 4 mg daily, Ecotrin 81 mg daily, Mobic 15 mg daily, 10 mg daily, and Zocor 20 mg daily. 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 FAMILY HISTORY: Alcoholism in the father. Prostate cancer in a brother. SOCIAL HISTORY: He is . He is a smoker and continues to smoke 1-pack per day for many years. Social drinker. No drugs. LAB FINDINGS: Show white count is 6.2, hemoglobin 16, hematocrit is 52, and platelets of 195. Sodium 135, potassium is 4.2, chloride 105, bicarb 24, anion gap of 10, BUN is 12, creatinine is 0.65, glucose is 82, calcium is 8.6. LFTs are normal. Albumin is 3.7. Coagulation, PT 12, INR 0.92, PTT 41. IMAGING STUDIES: Prostate ultrasound shows gland size to be 3 x 4 x 5.6 cm. It shows evidence of diffuse glandular, stromal hyperplasia consistent with BPH. PHYSICAL EXAMINATION: VITAL SIGNS: Temperature is 97.3, pulse 62, respiratory rate is 20, blood pressure 155/68, and pulse ox 95% on room air. GENERAL: No acute distress. Alert and oriented x3. Cooperative on examination. HEENT: Head normocephalic, atraumatic. Eyes, pupils equal, round, reactive to light bilaterally. Extraocular movements intact bilaterally. Throat, no evidence of erythema or exudates in the posterior pharynx. Has poor dentition. NECK: Supple. Good range of motion. PULMONARY: Clear to auscultation bilaterally. No wheezing, rales, rhonchi, or crackles appreciated. CARDIOVASCULAR: Positive S1, S2. . No gallops appreciated. ABDOMEN: Soft, nondistended, nontender to palpation. Bowel sounds present. MUSCULOSKELETAL: Strength is 5/5 throughout. No evidence of any muscle deficits on examination. No weakness appreciated. NEUROLOGIC: Cranial nerves 2 through 12 grossly intact. No evidence of any neurological deficits on exam. SKIN: Intact, warm to touch. Good cap refill. PSYCHIATRIC: Normal affect and mood. EXTREMITIES: No edema. Good range of motion throughout. IMPRESSION: 1. Benign prostatic hypertrophy, status post prostate biopsy secondary to elevated PSA. 2. Type 2 diabetes. 3. Hypertension. 4. Hyperlipidemia. PLAN: At this time, we will continue to follow with Urology and follow his recommendation in terms of the prostate. From a medical standpoint, we will continue with Amaryl and metformin for now. We will also put him on insulin sliding scale. He is complaining of some dysuria, for which he was started on Pyridium. Resume same antihypertensive medications with some blood pressures found to be relatively stable. We will put him on hydralazine p.r.n. for systolic blood pressure greater than 180. Ambien for sleep. Hold anticoagulation as he had some hematuria in the Montano. He is on IV antibiotics as per Urology. Pain control has been ordered. Otherwise, we will continue same plan of care and monitor him very closely. Thank you so much for this consultation. We will continue to follow him with you. MD JAMIR Xiong/BEATRICE /[id number]
[2018-08-13] VITALS: BP 123/61
[2018-08-13] MEDS: CEFOXITIN 1GM/ D5W 50ML 50 ML IV SCH ×3 (00:30→12:00)
[2018-08-13 04:00] VITALS: BP 117/62
[2018-08-13 07:06] LABS: BASOPHILS % 0.5 % (0.0-1.0); EOSINOPHILS # (AUTO) 0.1 (0.0-0.4); HEMATOCRIT 47.4 % (38.2-49.6); HEMOGLOBIN 15.5 g/dL (14.0-18.0); LYMPHOCYTES # (AUTO) 1.8 (1.0-3.2); LYMPHOCYTES % 22.2 % (18.0-39.1); MEAN CORPUSCULAR HEMOGLOBIN 29.2 pg (28-32); MEAN CORPUSCULAR HGB CONC 32.7 g/dL (31-35); MEAN CORPUSCULAR VOLUME 89.4 fL (81-99); MONOCYTES # (AUTO) 0.6 (0.2-0.8); MONOCYTES % 7.3 % (4.4-11.3); NEUTROPHILS # (AUTO) 5.5 (2.1-6.9); NEUTROPHILS % 68.8 % (38.7-80.0); PLATELET COUNT 180 x10e3/uL (140-360); RED CELL DISTRIBUTION WIDTH 14.8 % (11.7-14.4)
[2018-08-13 07:14] LABS: BLOOD UREA NITROGEN 9 mg/dL (7-26); BUN/CREATININE RATIO 12 (6-25); CALCIUM 8.7 mg/dL (8.4-10.2); CARBON DIOXIDE 25 mmol/L (22-29); CHLORIDE 103 mmol/L (98-107); CREATININE, SERUM 0.74 mg/dL (0.72-1.25); EST GLOMERULAR FILTRATION RATE > 60 ML/MIN (60-); GLUCOSE 108 mg/dL (74-118); SODIUM 134 mmol/L (136-145)
[2018-08-13] MEDS ORDERED: PANTOPRAZOLE SOD 40 MG TABEC PO SCH (07:30)
--- NOTE | 2018-08-13 07:52 | NUR ---
MAYA REMOVED AT THIS TIME . PT TOLERATED WELL. 400CC OF RED/ORANGE URINE IN BAG NOTED PRN NORCO GIVEN FOR PAIN CONTROL AT THIS TIME. INSTRUCTED TO VOID INTO URINAL AND NOTIFY NURSE WHEN FIRST VOID OCCURRED. PT VERBALIZED UNDERSTANDING
[2018-08-13] MEDS: HYDROCODONE/APAP 5MG-325MG TAB PO PRN (07:53)
[2018-08-13 08:00] VITALS: BP 115/64
[2018-08-13] MEDS ORDERED: METFORMIN HCL 500 MG TAB PO SCH (08:00)
[2018-08-13] MEDS ORDERED: GLIMEPIRIDE 2 MG TAB PO SCH (08:00)
[2018-08-13] MEDS: LISINOPRIL 10 MG TAB PO SCH (09:00)
[2018-08-13] MEDS ORDERED: MELOXICAM 7.5 MG TAB PO SCH (09:00)
[2018-08-13] MEDS ORDERED: LISINOPRIL 10 MG TAB PO SCH (09:00)
[2018-08-13] MEDS ORDERED: METOPROLOL SUCCINATE 25 MG TAB XL PO SCH (09:00)
[2018-08-13 09:12] VITALS: BP 115/64
[2018-08-13] MEDS: PHENAZOPYRIDINE HCL 100 MG TAB PO SCH ×2 (09:12→12:38)
[2018-08-13] MEDS: DOCUSATE SODIUM 100 MG CAP PO SCH (09:12)
[2018-08-13] MEDS: METOPROLOL SUCCINATE 50 MG TAB XL PO SCH (09:13)
[2018-08-13] MEDS ORDERED: MACROBID 100 M100 MG PO (11:58)
[2018-08-13 12:00] VITALS: BP 107/56
--- NOTE | 2018-08-13 12:06 | NUR ---
PT IS ALERT AND ORIENTED WILL BE RETURNING HOME WITH NO NEEDS
--- NOTE | 2018-08-13 12:30 | NUR ---
pt voided 400cc of clear orange/dark dark urine into urinal
--- NOTE | 2018-08-13 12:59 | NUR ---
dc instructions and prescriptions given. pt verbalized understanding. iv dc . pressure dressing applied and taped. pt is now off unit to home md charlton notified of pt dc
--- NOTE | 2018-08-13 14:45 | Progress Note ---
DATE: 08/13/2018 Medicine Progress Note SUBJECTIVE: The patient is doing well today with no complaints. Montano has been removed. Urine is orange in color, likely due to . OBJECTIVE: VITAL SIGNS: Temperature is 97.3, pulse 66, respiratory rate 20, blood pressure is 150/64, and pulse ox 94% on room air. GENERAL: Not in acute distress. Alert and oriented x3. Cooperative on examination. HEENT: Head is normocephalic and atraumatic. Eyes; pupils are equal, round, and reactive to light bilaterally. Extraocular movements are intact bilaterally. Throat, no evidence of erythema or exudates in the posterior pharynx. Has poor dentition. NECK: Supple. Good range of motion. PULMONARY: Clear to auscultation bilaterally. No wheezing, no rales, no rhonchi, no crackles appreciated. CARDIOVASCULAR: Positive S1, S2. No murmurs, rubs, or gallops appreciated. ABDOMEN: Soft, nondistended, and nontender to palpation. Bowel sounds present. MUSCULOSKELETAL: Strength is 5/5 throughout. No evidence of any muscle deficits on examination. No weakness appreciated. NEUROLOGICAL: Cranial nerves II through XII grossly intact. No evidence of any neurological deficits on exam. SKIN: Intact. Warm to touch. Good cap refill. PSYCHIATRIC: Normal affect and mood. EXTREMITIES: No edema. Good range of motion throughout. LAB FINDINGS: Show white count is 8, hemoglobin 15, hematocrit 47, and platelets of 180. Chemistry; sodium 134, potassium 4, chloride 103, bicarb 25, anion gap 10, BUN 9, creatinine is 0.74, and calcium is 8.7. MICROBIOLOGY: None. IMAGING: None. IMPRESSION: 1. Benign prostatic hypertrophy, status post prostate biopsy secondary to elevated PSA. 2. Type 2 diabetes. 3. Hypertension. 4. Hyperlipidemia. PLAN: At this time, Montano has been removed. He is doing well. Pain is well controlled. Continue with insulin sliding scale. Upon discharge, he will continue with the same anti-glycemics medications. Blood pressure is stable. We will continue the same home medications. Otherwise, once he has been cleared by Urology, he is okay to be discharged from medical standpoint. MD JAMIR Xiong/BEATRICE /[id number]
--- NOTE | 2018-08-13 14:55 | Progress Note ---
DATE: 08/13/2018 Discharge Progress Note The patient is one day status post ultrasound-directed transrectal prostate biopsy and cystoscopy. The Montano catheter was removed today. The patient is voiding light pink colored urine without difficulty. He states he feels well enough to go home though his temperature is 97.3. My plan at this time is to discharge the patient. He will complete his course of Flagyl at home. He is being sent home on Macrobid 100 mg p.o. twice daily #20 and will resume his other medications. He will have return appointment to see me again in two weeks to go over the results of the biopsy. Guzman Rubio MD SRA/MODL /[id number]
--- NOTE | 2018-08-15 06:14 | Operative Report ---
DATE OF PROCEDURE: 08/12/2018 SURGEON: Guzman Rubio MD PREOPERATIVE DIAGNOSIS: Elevated prostate-specific antigen. POSTOPERATIVE DIAGNOSIS: Elevated prostate-specific antigen. OPERATION PERFORMED: Cystoscopy. ANESTHESIA: Anesthesia is general. INDICATIONS: This patient is a 68-year-old white male, who had a prostate-specific antigen of 8.8. He had also had some blood in his urine. A CT scan was obtained, reveals a 3 cm cystic mass in the right kidney and an ultrasound was recommended after that, which revealed a septated right renal cyst, but no evidence of malignancy. For further details, please refer to the history and physical. The procedure was done in following fashion. DESCRIPTION OF PROCEDURE: The patient was taken to the operating room. DICTATION ENDS HERE Guzman Rubio MD DIVINA/MODL /[id number]
== END 2018-08-13 13:11 | disposition home or self-care (01) ==
LOC: OR 08:27 → PACU V 11:46 → MED/SURG 13:38
PROVIDERS: ADMIT Urology; ATTEND Urology
DX: N40.1 Benign prostatic hyperplasia with lower urinary tract symptoms (principal); R97.20 Elevated prostate specific antigen [PSA]; R31.29 Other microscopic hematuria; R35.0 Frequency of micturition; N28.1 Cyst of kidney, acquired; K64.4 Residual hemorrhoidal skin tags; K40.90 Unilateral inguinal hernia, without obstruction or gangrene, not specified as recurrent; E11.9 Type 2 diabetes mellitus without complications; E78.00 Pure hypercholesterolemia, unspecified; M19.90 Unspecified osteoarthritis, unspecified site; K43.9 Ventral hernia without obstruction or gangrene; F17.210 Nicotine dependence, cigarettes, uncomplicated; I10 Essential (primary) hypertension; E78.5 Hyperlipidemia, unspecified; Z79.84 Long term (current) use of oral hypoglycemic drugs
CPT/HCPCS: 36415 ×3; 55700; 71046; 76872; 80048; 80053; 82948 ×2; 85025 ×2; 85610; 85730; 88305; 93005; G0378 ×2; J0694; J2001; J2250; J2270; J2405; J2704; S0164